=== PATIENT | female | born 1990 | race Caucasian/White ===

== ENCOUNTER 2022-06-16 22:04 | Inpatient (IN) | payer BC, SELFPAY ==
[2022-06-17] VITALS (84 sets, daily range): BP systolic 98–135; BP diastolic 53–90; PULSE 63–127; RESP 16; TEMP 35.8–37.2; O2SAT 96–100; BMI 26.6
--- OUTSIDE RECORDS SUMMARY | 2022-06-17 00:01 | XMS_ITS ---
:1990 Author Care Team Providers Name Role Phone QUIRINO LEMUS Primary Care Provider [phone] Allergies Code Code System Name Reaction Severity Status Onset NKDA ? Medications Name Status Start Date Stop Date ? ? Afluria 9046-0354 (PF) 45 mcg (15 mcg x 3)/0.5 mL IM syringe Com pleted ? 06/27/2019 TO BE ADMINISTERED BY PHARMACIST FOR IMMUNIZATION amoxicillin 500 mg capsule Completed ? 12/04 TAKE 2 TABLETS BY MOUTH 2 TIMES DAILY FOR 10 DAYS amoxicillin 875 mg tablet Completed ? 2018 amoxicillin 875 mg-potassium clavulanate 125 mg tablet Completed ? 06/27/2019 benzonatate 100 mg capsule Completed ? 09/16 Boostrix Tdap 2.5 Lf unit-8 mcg-5 Lf/0.5 mL intramuscular syring e Completed ? 06/27/2019 TO BE ADMINISTERED BY PHARMACIST FOR IMMUNIZATION codeine 10 mg-guaifenesin 100 mg/5 mL oral liquid Completed ? 06/27/2019 cyclobenzaprine 10 mg tablet Completed ? 01/2019 doxycycline hyclate 100 mg tablet Completed ? 09/16/2019 drospirenone 3 mg-ethinyl estradiol 0.03 mg tablet Active ? Not available TAKE 1 TABLET BY MOUTH EVERY DAY Flucelvax Quad [id number] (PF) 60 mcg (15 mcg x 4)/0.5 mL IM syri nge Completed ? 06/27/2019 TO BE ADMINISTERED BY PHARMACIST FOR IMMUNIZATION fluticasone propionate 50 mcg/actuation nasal spray,suspension C ompleted ? 03/28/2017 USE 2 SPRAYS IN EACH NOSTRIL EVERY DAY hydrocodone 5 mg-acetaminophen 325 mg tablet Completed ? 09/11/2019 ibuprofen 600 mg tablet Completed ? 12/04/19 18 TAKE 1 TABLET BY MOUTH EVERY 6 HOURS NEEDED FOR CRAMPING loratadine 10 mg tablet Completed ? 09/16/20 19 TAKE 1 TABLET BY MOUTH EVERY DAY NEEDED
[2022-06-17] MEDS: fentaNYL CITRATE INJ (*CRX) 100 MCG/2 ML VIAL 50 MCG IV PUSH ×2 (00:27→01:20)
[2022-06-17] MEDS: LACTATED RINGERS 1,000 ML 125 ML IV CONT ×3 (00:28→03:31)
[2022-06-17 00:31] LABS: Basophils Percent Auto 0.3 % (0.2-1.2); Eosinophils Absolute Auto 0.1 K/mm3 (0-0.3); Eosinophils Percent Auto 0.5 % (0-4.4); Hematocrit 34.5 % (37.0-47.0); Hemoglobin 11.2 g/dL (12.0-15.0); Immature Granulocyte Absolute 0.15 K/mm3 (0.00-0.031); Immature Granulocyte Percent A 1.2 % (0-0.5); Lymphocytes Absolute Auto 2.36 K/mm3 (0.9-3.2); Lymphocytes Percent Auto 18.6 % (18.3-44.2); Mean Corpuscular HGB Conc 32.5 g/dl (32-36); Mean Corpuscular Hemoglobin 29.7 pg (26-34); Mean Corpuscular Volume 91.5 fl (80-100); Mean Platelet Volume 9.2 fl (7.4-10.4); Monocytes Absolute Auto 0.8 K/mm3 (0.1-0.6); Monocytes Percent Auto 6.5 % (2.6-8.5); Neutrophils Absolute Auto 9.3 K/mm3 (1.3-6.7); Neutrophils Percent Auto 72.9 % (45.5-73.1); Platelet Count Result 285 k/mm3 (150-375); Red Blood Count 3.77 M/mm3 (4.2-5.4); Red Cell Distribution Width 13.7 % (11.5-14.5); White Blood Count 12.7 K/mm3 (4.5-10.0)
[2022-06-17 01:20] LABS: HIV 1/2 Ab P24 Ag Result Negative (Negative)
--- NOTE | 2022-06-17 01:53 | WPDANESEPP ---
Anes - Eval Pre Procedure Procedure: labor epidural Date/Time: 06/17/22 01:53 Surgeon: chaya Preop Diagnosis: pain during labor Pre Op Diagnosis: Contractions Patient Data Age: 31 Gender: F Height: 1.7 m Weight: 77 kg Last Vital Signs Pulse 89 06/17/22 01:51 BP 127/75 06/17/22 01:51 Pulse Ox 100 06/17/22 01:50 O2 Del Method Room Air 06/17/22 00:32 Allergies Allergy/AdvReac Type Severity Reaction Status Date / Time No Known Allergies Allergy Unknown Verified 06/01/22 08:15 Home Medications Medication Instructions Recorded Confirmed Type vitamins-iron fumarate 65 1 tablet PO DAILY 10/25/21 06/17/22 History mg iron-folic acid 1 mg tablet Laboratory Tests 06/17/22 06/17/22 06/17/22 00:23 00:23 00:23 WBC 12.7 K/mm3 H K/mm3 (4.5-10.0) RBC 3.77 M/mm3 L M/mm3 (4.2-5.4) Hgb 11.2 g/dL L g/dL (12.0-15.0) Hct 34.5 % L % (37.0-47.0) MCV 91.5 fl fl (80-100) MCH 29.7 pg pg (26-34) MCHC 32.5 g/dl g/dl (32-36) RDW 13.7 % % (11.5-14.5) Plt Count 285 k/mm3 k/mm3 (150-375) MPV 9.2 fl fl (7.4-10.4) Immature Gran % (Auto) 1.2 % H % (0-0.5) Neut % (Auto) 72.9 % % (45.5-73.1) Lymph % (Auto) 18.6 % % (18.3-44.2) [place] % (Auto) 6.5 % % (2.6-8.5) Eos % (Auto) 0.5 % % (0-4.4) Baso % (Auto) 0.3 % % (0.2-1.2) Lymph # (Auto) 2.36 K/mm3 K/mm3 (0.9-3.2) [place] # (Auto) 0.8 K/mm3 H K/mm3 (0.1-0.6) Eos # (Auto) 0.1 K/mm3 K/mm3 (0-0.3) Baso # (Auto) 0.0 K/mm3 K/mm3 (0.0-0.1) Abs Immat Gran (auto) 0.15 K/mm3 H K/mm3 (0.00-0.031) Absolute Neuts (auto) 9.3 K/mm3 H K/mm3 (1.3-6.7) Absolute Nucleated RBC 0.0 K/mm3 K/mm3 (0.0-0.012) Nucleated RBC % 0.0 % % (0.0-0.2) RPR Pending HIV 1&2 Ab/P24 Ag 4thGn Negative (Negative) Patient hx anesthesia problems: none Family hx anesthesia problems: none Results Review: All pre-operative results and documents have been reviewed as part of the pre-operative evaluation. 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 , consistent with HPV effect History of placement of ear tubes Family History Family History (Updated 05/17/22 @ 14:37 by Stephen Hobbs RN) Grandparent Cerebrovascular accident Grandparent Lewy body dementia Social History Social History (Updated 10/25/21 @ 15:03 by LAUREN Barber) Smoking status: Never smoker Second hand tobacco smoke exposure: No Alcohol intake: never Alcohol use details: occasional Substance use: never Substance use type: does not use Additional living arrangements comments: spouse 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
[2022-06-17] MEDS: OXYTOCIN 30 UNITS/NS 500 ML 30 UNITS/500 ML BAG 999 UNITS IV CONT (05:40)
--- NOTE | 2022-06-17 05:57 | PM.IMHP ---
H&P: HPI History of Present Illness Date/Time: 06/17/22 05:57 Chief Complaint: contractions Narrative: Ludy is a 31yo @ 40.1wks who presented to L&D with painful contractions and made cervical change to 3cm with regular contractions. She has had regular care. Her has been complicated by: - Rubella non-immune - Umbilical hernia Review of Systems Review of Systems: All systems reviewed & are unremarkable except as noted in HPI and below PMFSH Past Medical History Medical History (Updated 06/17/22 @ 06:05 by Alanna Turner MD) Anxiety Migraines Suppression of menstruation Surgical History Surgical History (Updated 10/25/21 @ 13:00 by LAUREN Barber) H/O colposcopy with cervical biopsy (02/15/10) colpo / bx ; Lgsil mary l chronic cxitis H/O colposcopy with cervical biopsy (09/24/07) colpo/ bx ; rare mixed squamous epithelial cells with atypical features , consistent with HPV effect History of placement of ear tubes Family History Family History (Updated 05/17/22 @ 14:37 by Stephen Hobbs RN) Grandparent Cerebrovascular accident Grandparent Lewy body dementia Social History Social History (Updated 10/25/21 @ 15:03 by LAUREN Barber) Smoking status: Never smoker Second hand tobacco smoke exposure: No Alcohol intake: never Alcohol use details: occasional Substance use: never Substance use type: does not use Additional living arrangements comments: spouse 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 Gender identity (if verbalized by the patient): Female Sexual Orientation (if Verbalized by the Patient): Straight or Heterosexual Spiritual care concerns: No Meds Home Medications and Allergies Home Medications Medication Instructions Recorded Confirmed Type vitamins-iron fumarate 65 1 tablet PO DAILY 10/25/21 06/17/22 History mg iron-folic acid 1 mg tablet Allergies Allergy/AdvReac Type Severity Reaction Status Date / Time No Known Allergies Allergy Unknown Verified 06/01/22 08:15 Vital Signs Vital Signs - 24 hr 06/17/22 00:32 06/17/22 01:23 06/17/22 01:30 Temperature Pulse Rate 78 80 Blood Pressure 129/82 135/82 Pulse Oximetry Oxygen Delivery Room Air 06/17/22 01:35 06/17/22 01:36 06/17/22 01:40 Temperature Pulse Rate 98 96 Blood Pressure 134/81 123/85 Pulse Oximetry 98 98 Oxygen Delivery 06/17/22 01:43 06/17/22 01:45 06/17/22 01:48 Temperature Pulse Rate 99 97 Blood Pressure 128/83 126/83 Pulse Oximetry 100 Oxygen Delivery 06/17/22 01:49 06/17/22 01:50 06/17/22 01:51 Temperature Pulse Rate 97 89 Blood Pressure 124/77 127/75 Pulse Oximetry 100 Oxygen Delivery 06/17/22 01:54 06/17/22 01:55 06/17/22 01:57 Temperature Pulse Rate 89 89 Blood Pressure 125/79 123/75 Pulse Oximetry 99 Oxygen Delivery 06/17/22 02:00 06/17/22 02:03 06/17/22 02:05 Temperature Pulse Rate 98 92 Blood Pressure 120/72 106/57 L Pulse Oximetry 99 99 Oxygen Delivery 06/17/22 02:06 06/17/22 02:09 06/17/22 02:10 Temperature Pulse Rate 86 86 Blood Pressure 101/56 L 100/54 L Pulse Oximetry 98 Oxygen Delivery 06/17/22 02:12 06/17/22 02:15 06/17/22 02:18 Temperature Pulse Rate 86 81 84 Blood Pressure 98/53 L 120/61 116/65 Pulse Oximetry 98 Oxygen Delivery 06/17/22 02:20 06/17/22 02:21 06/17/22 02:24 Temperature Pulse Rate 84 83 Blood Pressure 114/61 118/62 Pulse Oximetry 97 Oxygen Delivery 06/17/22 02:25 06/17/22 02:27 06/17/22 02:30 Temperature Pulse Rate 83 80 Blood Pressure 115/63 110/61 Pulse Oximetry 97 98 Oxygen Delivery 06/17/22 02:35 06/17/22 02:40 06/17/22 02:45 Temperature Pulse Rate 85 Blood Pressure 114/69 Pulse Oximetry 98 99 98 Oxygen Delivery 06/17/22 02:50 06/17/22 02:55 06/17/22 03:00 Temperature 98 F Pulse Rate 75
--- NOTE | 2022-06-17 06:06 | WPDHPUPDATE1 ---
History and Physical Update Update Date/Time: 06/17/22 06:06 History and Physical has been reviewed, including an updated exam of the patient. There are NO changes in the patient's condition. Risks, benefits, and alternatives have been discussed and questions answered. Patient agrees to proceed with procedure.
--- NOTE | 2022-06-17 06:06 | PM.OBPRVD ---
OB - Delivery Note Procedure Delivery date: 06/17/22 Delivery monitor: External FHT and External Uterine Route of delivery: Laceration Description: None Specimen: No Quantitative Blood Loss (ml): 100 Anesthesia type: Epidural Disposition: Floor Baby Date of : 06/17/22 Time of : 05:37 Weeks of gestation at delivery: 40 (.1) gender: Male Weight (pounds): 7 Weight (ounces): 12 presentation: vertex position: Left Occiput Anterior Placenta delivery description: Expressed Cord Vessel Description: 3 Vessels and Clamped/Cut score one minute: 8 score five minutes: 9 Narrative: Ludy progressed to complete dilation without any augmentation. She pushed for 1 contraction and delivered the head over intact perineum. The posterior arm/hand was up by the face and delivered the posterior shoulder without complications, the anterior shoulder then followed. The infant was immediately placed skin to skin and had spontaneous cry. He was bulb suctioned by the pediatric nurse. Delayed cord clamping was performed. The umbilical cord was then clamped and cut. A segment of the cord was collected for cord gases. The remaining cord blood was collected for typing. With Pitocin running and gentle downward traction on the cord, the placenta delivered without complications. Minimal bleeding with good fundal tone was noted. The patient was examined and no lacerations were noted. Sponge, lap, instrument, needle counts were correct at the end of the procedure. Mom and baby were left bonding in the birthing suite in stable condition. [facility] Delivery Billing Delivery Delivery: Delivery Charge
[2022-06-17] MEDS: OXYTOCIN 30 UNITS/NS 500 ML 30 UNITS/500 ML BAG 125 UNITS IV CONT (06:13)
[2022-06-17] MEDS: LORATADINE 10 MG TABLET PO (08:20)
--- NOTE | 2022-06-17 09:52 | PC.NURSE ---
Patient transferred to post room #280 via wheelchair. Support person present. Oriented to unit, room, information board, rooming in, admission packet and security measures. Patient verbalizes understanding.
--- NOTE | 2022-06-17 10:09 | PC.NURSE ---
0934 - Introductions were made, then consulted with patient to assess needs related to . Mother verbalizes she is able to independently latch with appropriate positioning/alignment. She denies any nipple discomfort and is responsively . is currently meeting outcomes for weight, output, jaundice and feeding frequencies of 8-12 times in 24 hours. Mother declines any additional assistance/education at this time. Mother is encouraged to call for assistance if her infant doesn?t latch or there is discomfort with latching. Mother voiced understanding of information shared and mom and baby guide reviewed for additional resource information. Resources provided for inpatient and outpatient services using a resource guide.
[2022-06-17] MEDS: MULTIVIT/MIN/PREN/FOL AC/IRON TABLET 1 TAB PO (11:27)
[2022-06-17] MEDS: IBUPROFEN 600 MG TABLET PO ×2 (11:27→18:32)
[2022-06-17 16:51] LABS: Rapid Plasma Reagin Non-Reactive (NonReactive)
[2022-06-18 04:00] VITALS: BP 111/63; PULSE 80; RESP 16; TEMP 36.9
[2022-06-18] MEDS: IBUPROFEN 600 MG TABLET PO (04:01)
[2022-06-18 05:04] LABS: Hematocrit 32.9 % (37.0-47.0); Hemoglobin 10.6 g/dL (12.0-15.0)
[2022-06-18 08:10] VITALS: BP 118/71; PULSE 84; RESP 18; TEMP 36.2; O2SAT 99
[2022-06-18] MEDS: MEASLES,MUMPS,RUBELLA VACCINE 0.5 ML VIAL SUB-Q (08:40)
[2022-06-18] MEDS: MULTIVIT/MIN/PREN/FOL AC/IRON TABLET 1 TAB PO (08:40)
--- NOTE | 2022-06-18 08:45 | PM.OBPNVD ---
OB - PN: Subj Subjective Date/time seen: 06/18/22 08:45 Narrative: PPD#1 Ludy reports doing well today. 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 Her pain is controlled. She is tolerating regular diet, voiding, passing gas, and ambulating without issues. She is breast feeding. She would like her son circumcised. She would like to go home today. OB - PN: Obj Data Labs CBC & Chem 7: 06/18/22 04:04 Labs: Laboratory Results - last 24 hr 06/17/22 06/18/22 00:23 04:04 Hgb 10.6 L Hct 32.9 L RPR Non-reactive OB - PN A/P Assessment and Plan (1) Normal vaginal delivery of third : Code(s): O80 - Encounter for full-term uncomplicated delivery Status: Acute Plan day: 1 Plan: routine care and discharge home Comments: - Pelvic rest; take meds as prescribed - ER return precautions: fever, n/v/abd pain, bleeding, HTN Time Spent With Patient Time: Total time spent is greater than 50% in coordination of care (as documented) at patient's floor/unit and/or counseling patient: Review of Systems Constitutional: Constitutional: Denies chills, Denies fever(s) and Denies headache(s) Eyes: Eyes: Denies change in vision ENT: Denies dizziness and Denies headache(s) Cardiovascular: Cardiovascular: Denies chest pain, Denies palpitations and Denies dyspnea Respiratory: Respiratory: Denies cough and Denies dyspnea Gastrointestinal: Gastrointestinal: Denies nausea and Denies vomiting Neurologic: Denies dizziness and Denies headache(s) Endocrine: Endocrine: Denies palpitations Exam Const: General: cooperative, comfortable and no acute distress Orientation/consciousness: patient oriented x3 Resp: Effort & Inspection: normal respiratory effort Auscultation: clear to auscultation bilaterally Cardio: Rate: regular rate GI: Inspection: non-distended GI Palp: No abdominal tenderness and Yes Soft to palpation Auscultation: normal bowel sounds : Other: fundus firm Skin: General skin exam: normal color Neuro: General: patient oriented x3 Extrem: General: normal to inspection Psych: Appearance: grossly normal Affect: normal affect Attitude: cooperative
--- NOTE | 2022-06-18 10:07 | WPDANLDPN2 ---
Anes-Prog Note L&D Date/Time: 06/18/22 10:07 Neuro status: Neuro function grossly intact. Vital Signs: Last Vital Signs Temp 36.9 C 06/18/22 04:00 Pulse 80 06/18/22 04:00 Resp 16 06/18/22 04:00 BP 111/63 06/18/22 04:00 Pulse Ox 97 06/17/22 16:00 O2 Del Method Room Air 06/17/22 00:32 Pain score (VAS): 0 I/O: Intake & Output 06/17/22 06/18/22 06/18/22 23:59 07:59 15:59 Intake Total 240 Balance 240 Patient feedback: Patient satisfied with anesthetic care.
--- NOTE | 2022-06-18 11:19 | PC.NURSE ---
Patient viewed the discharge video Mother & Baby Care, The First Two Weeks . Patient was given the opportunity and encouraged to ask questions. Patient verbalized understanding of information shared and has been given the mother/baby guide for home reference.
[2022-06-20 07:58] VITALS: BP 118/88; PULSE 83; RESP 16; TEMP 37; O2SAT 99
--- NOTE | 2022-06-21 15:37 | PM.OBDSVD ---
DS: Admitting Diagnosis Discharge Date 06/18/22 Admitting Diagnosis active labor at term DS: Discharge Diagnosis Discharge Diagnosis (1) Normal vaginal delivery of third : Code(s): O80 - Encounter for full-term uncomplicated delivery Status: Acute OB - DS: Summary OB Procedures : Ultrasound OB Procedures Intrapartum: Spontaneous Vag Delivery OB Procedures: : None Peripartum Data Delivery Method: Natural Vaginal Laceration Description: None complications: none 1: Gender: Male Disposition of : home Status at Discharge Functional status at discharge: independent ambulation Overall status at discharge: patient is back to baseline Time Spent with Patient Time attestation: Total time spent providing and/or coordinating discharge services: Time spent: Less than 30 minutes Exam Const: General: cooperative, healthy appearing, comfortable and no acute distress Orientation/consciousness: patient oriented x3 Resp: Effort & Inspection: normal respiratory effort Auscultation: clear to auscultation bilaterally Cardio: Rate: regular rate GI: Inspection: non-distended GI Palp: No abdominal tenderness and Yes Soft to palpation Auscultation: normal bowel sounds : Other: fundus firm Skin: General skin exam: normal color Neuro: General: patient oriented x3 Extrem: General: normal to inspection Psych: Appearance: grossly normal Affect: normal affect Attitude: cooperative Discharge Plan Discharge Attending physician on discharge: Alanna Turner Consulting providers: Dang Villalobos Discharging Clinician: Alanna Turner Anticipated Discharge Date/Time: 06/18/22 12:00 Patient Disposition: Home, Self-Care Activity: may shower Diet: regular Discharge Instructions: Education: Mom and Baby Guide Given to: Mother Follow-Up: Call your delivering provider's office for an appointment to be seen in: 4 Weeks Mom and baby should come to the [facility] for the follow-up appointment. Appointment Date/Time: June 20, 2022 at 8:00 am What to expect at your follow-up visit: Physical Assessment Call [phone] if you are unable to keep your appointment time. BREAST CARE: * Wear a snug supportive bra. * For engorgement discomfort: Breast Feeding: * Apply warm moist washcloths * Express milk as needed to relieve engorgement * Wear loose clothing * For sore nipples: * Identify correct latch-on * Apply warm moist washcloths before and after nursing * Air dry nipples after nursing * May apply Lansinoh cream to nipples EPISIOTOMY/PERINEAL CARE: * Until bleeding stops, use your jasen bottle after urinating * Change your pad frequently throughout the day * You may take sitz baths several times a day (fill your bathtub with warm water and soak for 20 minutes.) Do NOT bathe in the water * No tub baths until seen by your physician - You may shower ACTIVITY: * Rest as much as possible. * Do not exercise or lift anything heavier than your baby (such as laundry or other children.) * Avoid stairs or driving as much as possible. * Do not put anything into the vagina. No douching, tampons, or sexual activity until seen by physician. NOTIFY PHYSICIAN IF YOU HAVE ANY QUESTIONS OR IF ANY OF THE FOLLOWING SYMPTOMS OCCUR: * If your perineum becomes red, swollen, or more painful than what you have experienced in the hospital. * If your vaginal bleeding becomes foul smelling. * If your vaginal bleeding becomes more heavy than a period or if your bleeding changes from pink to bright red. However, you may pass an occasional walnut-sized clot once or twice for the first week . * If you experience a sharp, shooting pain in you calves. * If you discover a hard, reddened area on your breast or if you experience flu-like symp
== END 2022-06-18 13:25 | disposition home or self-care (01) | DRG 807 ==
LOC: ANHLDR 06-17 00:05 → ANHOB2 06-18 08:47 → ANHLDR 06-21 10:43 → ANHOB2 06-21 10:43
PROVIDERS: Admitting Provider Obstetrics & Gynecology; PCP Family Medicine; Visit Provider Obstetrics & Gynecology
DX: O76 Abnormality in fetal heart rate and rhythm complicating labor and delivery (principal); Z37.0 Single live birth; Z3A.40 40 weeks gestation of pregnancy
CPT/HCPCS: 36415; 85014; 85018; 85025; 86592; 86703; 86850; 86900; 86901; 90710; A9270; G0432; J2590; J2795; J3010; J7120